=== PATIENT | female | born 1975 ===

== ENCOUNTER 2016-08-05 09:10 | Inpatient (IN) | payer OTHER ==
[2016-08-05] MEDS ORDERED: OLIVE OIL 118 ML BTL MISC PRN (09:52)
[2016-08-05] MEDS ORDERED: OXYTOCIN/RINGERS LACTATE 1,000 ML IV PRN (09:52)
[2016-08-05] MEDS ORDERED: TERBUTALINE SULFATE 1 MG/ML VIAL IV PRN (09:52)
[2016-08-05] MEDS ORDERED: LR 1,000 ML IV PRN (09:52)
[2016-08-05] MEDS ORDERED: EPSOM SALT 454 GM TP PRN (09:52)
[2016-08-05] MEDS ORDERED: LIDOCAINE 1% 300 MG/30 ML SDV ONE (09:56)
[2016-08-05] MEDS ORDERED: OLIVE OIL 118 ML BTL ONE (09:56)
[2016-08-05] MEDS ORDERED: AMMONIA AROMATIC 1 EACH AMP IH ONE (09:56)
[2016-08-05] MEDS ORDERED: MISOPROSTOL 200 MCG TAB ONE (09:57)
[2016-08-05] MEDS ORDERED: TERBUTALINE SULFATE 1 MG/ML VIAL ONE (09:57)
[2016-08-05] MEDS ORDERED: OXYTOCIN 10 UNIT/ML VIAL ONE (09:57)
[2016-08-05 10:03] LABS: % IMMATURE GRANULYOCYTES 1.3 % (0.0-1.1); ABSOLUTE IMMATURE GRANULOCYTES 0.19 10^3/uL (0.00-0.10); ADD DIFF? NO; ADD MORPH? NO; ADD SCAN? NO; ATYPICAL LYMPHOCYTE FLAG 0 (0-99); FRAGMENT RBC FLAG 0 (0-99); HEMATOCRIT 33.6 % (38.0-47.0); HEMOGLOBIN 11.2 g/dL (12.6-16.3); LEFT SHIFT FLG 10 (0-99); LIPEMIA HEMOLYSIS FLAG 80 (0-99); MEAN CELL HEMOGLOBIN 27.7 pg (27.9-34.1); MEAN CELL HEMOGLOBIN CONCENTR. 33.3 g/dL (32.4-36.7); MEAN CELL VOLUME 83.2 fL (81.5-99.8); MEAN PLATELET VOLUME 10.3 fL (8.7-11.7); PLATELET CLUMPS FLAG 0 (0-99); PLATELET COUNT 171 10^3/uL (150-400); RED BLOOD CELL COUNT 4.04 10^6/uL (4.18-5.33); RED CELL DISTRIBUTION WIDTH 15.1 % (11.5-15.2)
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
[2016-08-05] MEDS ORDERED: HYDROCODONE/APAP 5/325 TAB PO PRN (14:55)
[2016-08-05] MEDS ORDERED: HYDROCORTISONE 0.5% CREAM TP PRN (14:55)
[2016-08-05] MEDS ORDERED: SIMETHICONE 80 MG TAB CHEW PO PRN (14:55)
[2016-08-05] MEDS ORDERED: ACETAMINOPHEN 325 MG TAB PO PRN (14:55)
--- NOTE | 2016-08-05 14:59 | OBDEL ---
Info Type: Vaginal GBS+: No Indications for Delivery: Spontaneous Labor Vaginal Delivery - Labor and Delivery Onset of Contractions Date: 08/05/16 Onset of Contractions Time: 05:00 Onset of Contractions Type: Spontaneous Rupture of Membranes Date: 08/05/16 Rupture of Membranes Time: 14:31 Rupture of Membranes Type: Artificial Amniotic Fluid Color: Clear Dilation Complete Date: 08/05/16 Dilation Complete Time: 14:27 Placenta Delivery Date: 08/05/16 Placenta Delivery Time: 14:35 Total Hours of Labor: 9 Non-surgical Procedures: Amniotomy Laceration: 2nd Degree Repair: 2-0, Vicryl Vaginal Sponge Count Correct: Yes Vaginal Needle Count Correct: Yes Vaginal Sweep Performed: Yes EBL: 150 Delivery Events: None - Medications Labor Augmentation/Induction Methods Used: None [place] [facility] Delivery Date: 08/05/16 Delivery Time: 14:32 OLLIE: 08/12/16 Gestational Age: 39 week(s) and 0 day(s) Sex of Infant: Female Score (1 Min): 8 Score (5 Min): 9 ICD10 Worksheet Patient Problems: Problems Problem Status Onset Labor established Acute Spontaneous vaginal delivery Acute
[2016-08-05] MEDS: IBUPROFEN 600 MG TAB PO PRN ×2 (15:04→21:08)
[2016-08-05] MEDS: DOCUSATE SODIUM 100 MG CAP PO PRN (21:08)
[2016-08-05 21:13] VITALS: O2SAT 97
[2016-08-06] MEDS: IBUPROFEN 600 MG TAB PO PRN ×2 (03:08→10:23)
[2016-08-06] MEDS ORDERED: IRON POLYSAC/IRON HEME 28 MG TAB PO SCH (09:00)
[2016-08-06 09:02] VITALS: BP 104/67; PULSE 76; RESP 16; TEMP 99.7
[2016-08-06] MEDS: DOCUSATE SODIUM 100 MG CAP PO PRN (10:23)
--- NOTE | 2016-08-06 10:45 | OBPP ---
Progress Note Assessment/Plan: Assessment: well vs wnl anemic scant rubra lochia pain well managed perineum approximated, minimal swelling Plan:discharge to home with instructions discussed depression, pain management, , depression, pericare, contracption, pelvic rest, exercise 08/06/16 10:43 Subjective: Desires discharge to home with instructions. Denies pain. well. Voiding without difficulty. Objective: 08/06/16 06:10 Patient ABO/Rh O NEGATIVE 08/05/16 09:50 Temp Pulse Resp BP Pulse Ox 37.6 C 76 16 104/67 97 08/06/16 08:00 08/06/16 08:00 08/06/16 08:00 08/06/16 08:00 08/06/16 08:00 Uterine Position/Fundal Height: At Umbilicus Uterine Tone: Firm Physical Exam - Physical Exam General Appearance: WD/WN, alert, no apparent distress Abdomen: other (ff@u) Extremities: normal range of motion, Aquiles's sign (negative bilaterally) DTR- Lower Extremities: Knee (R): 1+, Knee (L): 1+ (no clonus) Skin: normal color, warm/dry Neuro/Psych: no motor/sensory deficits, alert, normal mood/affect, oriented x 3
--- NOTE | 2016-08-06 10:55 | OBGCSDC ---
General Delivery Information - General Info : 3 Para: 2 Delivery Physician/CNM: Katherin Acharya Labs: Patient ABO/Rh O NEGATIVE 08/05/16 09:50 Hct 32.6 % (38.0-47.0) L 08/06/16 06:10 Vaginal - Diagnosis Labor: Spontaneous Rupture of Membranes Type: Artificial Amniotic Fluid Color: Clear Laceration: 2nd Degree Repair: 2-0, Vicryl Delivery Events: None - Operations/Procedures Non-surgical Procedures: Amniotomy L&D Analgesia/Anesthesia Type: Local - Hospital Course Antepartum: Rotine care with [facility] care Intrapartum: Spontaneous labor. Arom clear fluid. GBS negative. @ degree repair. !50 ebl : Routine discharge after 24 hours at patient request. Doing well with . Minimal pain - Delivery Non-surgical Procedures: Amniotomy L&D Analgesia/Anesthesia Type: Local [place] [facility] Delivery Date: 08/05/16 Delivery Time: 14:32 OLLIE: 08/12/16 Gestational Age: 39 week(s) and 1 day(s) Sex of Infant: Female [place] Weight (gm): 3458.642 g Score (1 Min): 8 Score (5 Min): 9
== END 2016-08-06 15:30 | disposition home or self-care (01) | DRG 775 ==
LOC: OBSVTOIN 09:10 → FLD 09:10 → FOB 19:25
PROVIDERS: ADMIT Obstetrics & Gynecology; ATTEND Obstetrics & Gynecology
PROC: 10E0XZZ Delivery of Products of Conception, External Approach (ICD-10-PCS; principal; 2016-08-05)
PROC: 0KQM0ZZ Repair Perineum Muscle, Open Approach (ICD-10-PCS; principal; 2016-08-05)
DX: O70.1 Second degree perineal laceration during delivery (principal); O26.893 Other specified pregnancy related conditions, third trimester; Z3A.39 39 weeks gestation of pregnancy; Z37.0 Single live birth; M41.9 Scoliosis, unspecified
CPT/HCPCS: J2590; J3105

== ENCOUNTER → 2016-08-14 | Outpatient (CLI) | payer OTHER | LOC: FLACT 13:07 | PROVIDERS: ATTEND Obstetrics & Gynecology | DX: O92.79 Other disorders of lactation (principal) | CPT/HCPCS: G0463 ==